=== PATIENT | female | born 2000 | race Caucasian/White ===

== ENCOUNTER 2018-01-06 18:48 | Emergency (ER) | payer BC ==
--- NOTE | 2018-01-06 19:12 | ED ---
Abdominal Pain HPI - General Chief Complaint: Abdominal Pain Stated Complaint: stomach pain Time Seen by Provider: 01/06/18 18:55 Source: patient, RN notes reviewed Mode of arrival: ambulatory Limitations: no limitations - History of Present Illness Initial Comments: This is a 17-year-old female who presents to the emergency department with chief complaint of abdominal pain. Patient states that she developed lower abdominal pain yesterday. She describes the pain as a stretching sensation. She states that she is currently 7 weeks . She states that on her first ultrasound she was approximately 4 weeks and baby's heart beat was seen on ultrasound. She states that her previous ultrasound performed on Monday showed gestational sac and yolk sac but that the fetus was not visualized. Denies any vaginal bleeding or discharge. She states that she has been experiencing nausea and vomiting in the mornings. She states she is sensitive to different smells. Denies fever or chills, shortness of breath or chest pain, dysuria or hematuria, constipation or diarrhea. Patient states her TITLE INSURANCE AGENT is Dr. Diggs. - Related Data Home Medications Medication Instructions Recorded Confirmed Exl-Ecyk-Iocvv Acid 1 cap PO DAILY 01/06/18 01/06/18 [-U Capsule (formulary)] Allergies Allergy/AdvReac Type Severity Reaction Status Date / Time No Known Allergies Allergy Verified 01/06/18 19:21 Review of Systems ROS Statement: Those systems with pertinent positive or pertinent negative responses have been documented in the HPI. ROS Other: All systems not noted in ROS Statement are negative. Past Medical History Past Medical History: No Reported History History of Any Multi-Drug Resistant Organisms: None Reported Past Surgical History: Tonsillectomy Past Psychological History: No Psychological Hx Reported Smoking Status: Former smoker Past Alcohol Use History: None Reported Past Drug Use History: None Reported General Exam - General Exam Comments Initial Comments: General: Awake and alert, well-developed; in no apparent distress. Pleasant young female. HEENT: Head atraumatic, normocephalic. Pupils are equal, round and reactive to light. Extraocular movements intact. Oropharynx moist without erythema or exudate. Neck: Supple. Normal ROM. Cardiovascular: Regular rate and rhythm. No murmurs, rubs or gallops. Chest symmetrical. Respiratory: Lungs clear to auscultation bilaterally. No wheezes, rales or rhonchi. Normal respiratory effort with no use of accessory muscles. Abdomen: Soft, non-tender, non-distended. No rigidity, rebound or guarding. Normal bowel sounds in all 4 quadrants. Musculoskeletal: Normal ROM, no tenderness bilateral upper and lower extremities. Ambulating normally. Skin: [place], warm and dry without rashes or lesions. Neurological: Alert and oriented x3. CN II-XII grossly intact. Speech is fluent and answers are appropriate. No focal neuro deficits. Psychiatric: Normal mood and affect. No overt signs of depression or anxiety noted. Limitations: no limitations Course Vital Signs 01/06/18 18:51 Temperature 97.4 F L Pulse Rate 89 Respiratory 20 Rate Blood Pressure 128/61 O2 Sat by Pulse 99 Oximetry Medical Decision Making - Medical Decision Making This is a 17-year-old female who presents to the emergency department with chief complaint of abdominal pain. Patient denied any vaginal bleeding or discharge. She states that abdominal pain is intermittent in the lower abdomen. She does have confirmed IUP on 2 previous ultrasounds. Patient's hCG serum was 124,921. CBC, CMP and UA were within normal limits. UA revealed no evidence of proteinuria, hematuria or infection. Ultrasound revealed an intrauterine gestational sac and yolk sac. Possibility of blighted ovum. Patient's vital signs are stable and she is in no acute distress. She will be discharged home. Recommended following up with her TITLE INSURANCE AGENT on Monday. Return parameters were discussed. Patient is in agreement and voices understanding. All questions were answered. - Lab Data Result diagrams: 01/06/18 19:30 01/06/18 19:30 Lab Results 01/06/18 01/06/18 01/06/18 Range/Units 19:30 19:30 19:30 WBC 10.0 (4.0-11.0) k/uL RBC 4.59 (3.80-5.40) m/uL Hgb 13.9 (11.4-16.0) gm/dL Hct 42.4 (34.0-46.0) % MCV 92.3 (80.0-100.0) fL MCH 30.3 (25.0-35.0) pg MCHC 32.9 (31.0-37.0) g/dL RDW 12.2 (11.5-15.5) % Plt Count 247 (150-450) k/uL Neutrophils % 68 % Lymphocytes % 24 % Monocytes % 6 % Eosinophils % 1 % Basophils % 0 % Neutrophils # 6.8 (1.3-7.7) k/uL Lymphocytes # 2.4 (1.0-4.8) k/uL Monocytes # 0.6 (0-1.0) k/uL Eosinophils # 0.1 (0-0.7) k/uL Basophils # 0.0 (0-0.2) k/uL Sodium 141 (137-145) mmol/L Potassium 4.0 (3.5-5.1) mmol/L Chloride 105 (98-107) mmol/L Carbon Dioxide 23 (22-30) mmol/L Anion Gap 13 mmol/L BUN 5 L (7-17) mg/dL Creatinine 0.40 L (0.52-1.04) mg/dL Est GFR (MDRD) Af Amer >60 (>60 ml/min/1.73 sqM) Est GFR (MDRD) Non-Af >60 (>60 ml/min/1.73 sqM) Glucose 85 (74-99) mg/dL Calcium 9.7 (8.4-10.2) mg/dL Total Bilirubin 0.3 (0.2-1.3) mg/dL AST 19 (14-36) U/L ALT 24 (9-52) U/L Alkaline Phosphatase 68 (38-126) U/L Total Protein 7.4 (6.3-8.2) g/dL Albumin 4.4 (3.5-5.0) g/dL Amylase 55 (30-110) U/L Lipase 84 (23-300) U/L HCG, Quant 722578.0 mIU/mL Urine Color Light Yellow Urine Appearance Clear (Clear) Urine pH 7.5 (5.0-8.0) Ur Specific [place] 1.005 (1.001-1.035) Urine Protein Negative (Negative) Urine Glucose (UA) Negative (Negative) Urine Ketones Negative (Negative) Urine Blood Negative (Negative) Urine Nitrite Negative (Negative) Urine Bilirubin Negative (Negative) Urine Urobilinogen <2.0 (<2.0) mg/dL Ur Leukocyte Esterase Negative (Negative) Blood Type Blood Type Recheck 01/06/18 Range/Units 20:35 WBC (4.0-11.0) k/uL RBC (3.80-5.40) m/uL Hgb (11.4-16.0) gm/dL Hct (34.0-46.0) % MCV (80.0-100.0) fL MCH (25.0-35.0) pg MCHC (31.0-37.0) g/dL RDW (11.5-15.5) % Plt Count (150-450) k/uL Neutrophils % % Lymphocytes % % Monocytes % % Eosinophils % % Basophils % % Neutrophils # (1.3-7.7) k/uL Lymphocytes # (1.0-4.8) k/uL Monocytes # (0-1.0) k/uL Eosinophils # (0-0.7) k/uL Basophils # (0-0.2) k/uL Sodium (137-145) mmol/L Potassium (3.5-5.1) mmol/L Chloride (98-107) mmol/L Carbon Dioxide (22-30) mmol/L Anion Gap mmol/L BUN (7-17) mg/dL Creatinine (0.52-1.04) mg/dL Est GFR (MDRD) Af Amer (>60 ml/min/1.73 sqM) Est GFR (MDRD) Non-Af (>60 ml/min/1.73 sqM) Glucose (74-99) mg/dL Calcium (8.4-10.2) mg/dL Total Bilirubin (0.2-1.3) mg/dL AST (14-36) U/L ALT (9-52) U/L Alkaline Phosphatase (38-126) U/L Total Protein (6.3-8.2) g/dL Albumin (3.5-5.0) g/dL Amylase (30-110) U/L Lipase (23-300) U/L HCG, Quant mIU/mL Urine Color Urine Appearance (Clear) Urine pH (5.0-8.0) Ur Specific [place] (1.001-1.035) Urine Protein (Negative) Urine Glucose (UA) (Negative) Urine Ketones (Negative) Urine Blood (Negative) Urine Nitrite (Negative) Urine Bilirubin (Negative) Urine Urobilinogen (<2.0) mg/dL Ur Leukocyte Esterase (Negative) Blood Type B Positive Blood Type Recheck No - Radiology Data Radiology results: report reviewed Transvaginal obstetrical ultrasound impression: There is an intrauterine gestational sac. This excess corresponds 8 weeks and 4 days. However there are internal echoes and no definite pole. There is a 4 mm yolk sac. There is discordant sac size and yolk sac and pole. The possibility of blighted ovum should be considered. No adnexal mass. Follow-up exam in 7-10 days would be helpful for further evaluation of clinically indicated. Disposition Clinical Impression: Intrauterine , Threatened Disposition: HOME SELF-CARE Condition: Good Instructions: Threatened Miscarriage (ED), (ED) Additional Instructions: Please follow-up with TITLE INSURANCE AGENT within 1-2 days. Please follow up with primary care provider within 1-2 days. Return to emergency department if symptoms should worsen or any concerns arise. Referrals: None,Stated [Primary Care Provider] - 1-2 days Time of Disposition: 23:53
[2018-01-06 19:40] LABS: Basophils % (A) 0 %; Eosinophils # (A) 0.1 k/uL (0-0.7); Eosinophils % (A) 1 %; HCT 42.4 % (34.0-46.0); HGB 13.9 gm/dL (11.4-16.0); Lymphocytes # (A) 2.4 k/uL (1.0-4.8); Lymphocytes % (A) 24 %; MCH 30.3 pg (25.0-35.0); MCHC 32.9 g/dL (31.0-37.0); MCV 92.3 fL (80.0-100.0); Mean Platelet Volume 7.2; Monocytes # (A) 0.6 k/uL (0-1.0); Monocytes % (A) 6 %; Neutrophils # (A) 6.8 k/uL (1.3-7.7); Neutrophils % (A) 68 %; Platelet Count 247 k/uL (150-450); RBC 4.59 m/uL (3.80-5.40); RDW 12.2 % (11.5-15.5)
[2018-01-06 19:41] LABS: Appearance,Urine Clear (Clear); Bilirubin,Urine Negative (Negative); Blood,Urine Negative (Negative); Color,Urine Light Yellow; Glucose,Urine (UA) Negative (Negative); Ketones,Urine Negative (Negative); Leukocyte Esterase,Urine Negative (Negative); Nitrite,Urine Negative (Negative); PH, Urine 7.5 (5.0-8.0); Protein,Urine Negative (Negative); Specific Gravity,Urine 1.005 (1.001-1.035); Urobilinogen,Urine <2.0 mg/dL (<2.0)
[2018-01-06 19:54] LABS: ALT 24 U/L (9-52); AST 19 U/L (14-36); Albumin 4.4 g/dL (3.5-5.0); Alkaline Phosphatase 68 U/L (38-126); Amylase 55 U/L (30-110); Anion Gap 13 mmol/L; Blood Urea Nitrogen 5 mg/dL (7-17); Calcium 9.7 mg/dL (8.4-10.2); Carbon Dioxide 23 mmol/L (22-30); Chloride 105 mmol/L (98-107); Glucose 85 mg/dL (74-99); Lipase 84 U/L (23-300); Sodium 141 mmol/L (137-145); Total Bilirubin 0.3 mg/dL (0.2-1.3); Total Protein 7.4 g/dL (6.3-8.2)
--- NOTE | 2018-01-06 23:47 | US ---
EXAMINATION TYPE: US OB <=14 wks transvag DATE OF EXAM: 01/06/2018 COMPARISON: NONE CLINICAL HISTORY: abdominal pain. Intermittent pelvic cramping x 2 days, 1 EXAM PERFORMED: Transvaginal (TV) and Transabdominal (TA): transvaginal exam performed to better geovani luate for pole. EXAM MEASUREMENTS: GESTATIONAL AGE / DATING Physician Established: Not established yet Dates by LMP: (11 weeks/6 days) EDC: 07/22/2018 Dates by First Scan: No previous Dates by Current Scan for: By gestational sac measurement ( 8 weeks/2 days) EDC: 08/16/2018 MATERNAL ANATOMY Uterus: 9.5 x 6.0 x 6.8cm, retroverted Right Ovary: 3.4 x 1.8 x 1.9cm Left Ovary: 2.7 x 1.6 x 2.5cm Post CDS / Adnexa: small amount of free fluid in posterior cul de sac Presence of free fluid: yes Presence of corpus luteal cyst: right ovary: 1.6 x 1.4 x 1.4cm isoechoic area with peripheral vascula rity, possible corpus luteum Presence of subchorionic bleed: no GESTATION / SURVEY No pole seen at this time MSD: 3.3cm (8 weeks/2 days) Appears to be internal echoes and septations within gestational sac Yolk Sac (normal less than 6mm): 4.3mm Date of LMP: 10/15/17 Beta HcG (if available): 124,921.0 No pole seen at this time. IMPRESSION: There is an intrauterine gestational sac. The sac size corresponds to 8 weeks and 4 days. However the re are internal echoes and no definite pole. There is a 4 mm yolk sac. There is discordant sac size and yolk sac and pole. The possibility of blighted ovum should be considered. No adnexal mass. Follow-up exam in 7-10 days would be helpful for further evaluation if clinically in dicated.
[2018-01-07 00:20] VITALS: BP 105/58; PULSE 86; RESP 18; TEMP 98.6
== END 2018-01-07 00:20 | disposition home or self-care (01) ==
LOC: EC 18:48
DX: O20.0 Threatened abortion (principal); Z3A.01 Less than 8 weeks gestation of pregnancy; Z87.891 Personal history of nicotine dependence; Z79.899 Other long term (current) drug therapy
CPT/HCPCS: 36415; 76801; 76817; 80053; 81003; 82150; 83690; 84702; 85025; 86900; 86901; 87086; 99284

== ENCOUNTER 2018-02-02 07:29 | Emergency (ER) | payer BC ==
[2018-02-02 08:08] LABS: Partial Thromboplastin Time 24.8 sec (22.0-30.0); Prothrombin Time 10.2 sec (9.0-12.0)
[2018-02-02 08:13] LABS: ALT 19 U/L (9-52); AST 18 U/L (14-36); Alkaline Phosphatase 63 U/L (38-126); Anion Gap 13 mmol/L; Blood Urea Nitrogen 6 mg/dL (7-17); Calcium 9.6 mg/dL (8.4-10.2); Carbon Dioxide 23 mmol/L (22-30); Chloride 107 mmol/L (98-107); Glucose 109 mg/dL (74-99); Potassium 4.3 mmol/L (3.5-5.1); Sodium 143 mmol/L (137-145); Total Bilirubin 0.5 mg/dL (0.2-1.3); Total Protein 6.7 g/dL (6.3-8.2)
[2018-02-02] MEDS ORDERED: ACETAMINOPHEN TAB 325 MG TAB PO STA (08:18)
[2018-02-02 08:19] LABS: Basophils # (A) 0.1 k/uL (0-0.2); Basophils % (A) 1 %; Eosinophils # (A) 0.3 k/uL (0-0.7); Eosinophils % (A) 3 %; HCT 38.7 % (34.0-46.0); HGB 13.8 gm/dL (11.4-16.0); Lymphocytes # (A) 1.9 k/uL (1.0-4.8); Lymphocytes % (A) 19 %; MCHC 35.8 g/dL (31.0-37.0); Mean Platelet Volume 7.1; Monocytes # (A) 0.4 k/uL (0-1.0); Monocytes % (A) 5 %; Neutrophils # (A) 7.2 k/uL (1.3-7.7); Neutrophils % (A) 72 %; Platelet Count 218 k/uL (150-450); RBC 4.47 m/uL (3.80-5.40); RDW 12.2 % (11.5-15.5); WBC 9.9 k/uL (4.0-11.0)
--- NOTE | 2018-02-02 08:21 | ED ---
Female Urogenital HPI - General Chief complaint: Vaginal Bleeding Stated complaint: Vaginal bleeding Time Seen by Provider: 02/02/18 08:04 Source: patient, EMS, RN notes reviewed Mode of arrival: EMS Limitations: no limitations - History of Present Illness Initial comments: This a 17-year-old female presents emergency Department chief complaint of vaginal bleeding. Patient states that one month ago she was diagnosed with a blighted ovum here in emergency department and by her DEPLOYMENT SPECIALIST Dr. Diggs. She was offered a D&C at that time or she could pass itHome. She states that she was going to call if she has not passed anything and schedule a D&C though she started bleeding this morning. She states that she started having very heavy vaginal bleeding passed a large clot or some sort of material at that time. Patient states now the bleeding is slowing down and has not much of anything. She does complain of some lower abdominal cramping. She has feeling lightheaded , dizziness, chest pain or shortness of breath. She did attempt to contact her OB 1 this morning no there was no answer from the legal receptionist. Patient is A1 Last Menstrual Period: 10/15/17 - Related Data Home Medications Medication Instructions Recorded Confirmed Ibuprofen [Motrin Ib] 400 mg PO ONCE PRN 02/02/18 02/02/18 Allergies Allergy/AdvReac Type Severity Reaction Status Date / Time No Known Allergies Allergy Verified 02/02/18 09:27 Review of Systems ROS Statement: Those systems with pertinent positive or pertinent negative responses have been documented in the HPI. ROS Other: All systems not noted in ROS Statement are negative. Past Medical History Past Medical History: No Reported History History of Any Multi-Drug Resistant Organisms: None Reported Past Surgical History: Tonsillectomy Past Psychological History: Anxiety, Depression Smoking Status: Former smoker Past Alcohol Use History: Rare Past Drug Use History: None Reported General Exam Limitations: no limitations General appearance: alert, in no apparent distress Head exam: Present: atraumatic, normocephalic, normal inspection Eye exam: Present: normal appearance, PERRL, EOMI. Absent: scleral icterus, conjunctival injection, periorbital swelling Respiratory exam: Present: normal lung sounds bilaterally. Absent: respiratory distress, wheezes, rales, rhonchi, stridor Cardiovascular Exam: Present: regular rate, normal rhythm, normal heart sounds. Absent: systolic murmur, diastolic murmur, rubs, gallop, clicks GI/Abdominal exam: Present: soft, normal bowel sounds. Absent: distended, tenderness, guarding, rebound, rigid Back exam: Absent: CVA tenderness (R), CVA tenderness (L) Course Vital Signs 02/02/18 07:30 Temperature 98.5 F Pulse Rate 91 Respiratory 18 Rate Blood Pressure 125/64 O2 Sat by Pulse 99 Oximetry - Reevaluation(s) Reevaluation #1: 02/02/18 08:21 Medical record was reviewed patient has be positive blood type. Patient will have lab work, ultrasound. Patient is having current miscarriage from blighted ovum Medical Decision Making - Medical Decision Making 17-year-old female presented emergency Department chief complaint of vaginal bleeding. Patient was diagnosed with blighted over one month ago. Patient's hCG has come down tremendously. Patients also consistent with miscarriage at this time. Patient's bleeding has slowed down. Patient states that symptoms are memorizing. Patient's blood type is B+, hemoglobin is stable. Patient will be discharged advised to follow with Dr. Diggs. - Lab Data Result diagrams: 02/02/18 07:30 02/02/18 07:30 Lab Results 02/02/18 02/02/18 02/02/18 Range/Units 07:30 07:30 07:30 WBC 9.9 (4.0-11.0) k/uL RBC 4.47 (3.80-5.40) m/uL Hgb 13.8 (11.4-16.0) gm/dL Hct 38.7 (34.0-46.0) % MCV 86.7 D (80.0-100.0) fL MCH 31.0 (25.0-35.0) pg MCHC 35.8 (31.0-37.0) g/dL RDW 12.2 (11.5-15.5) % Plt Count 218 (150-450) k/uL Neutrophils % 72 % Lymphocytes % 19 % Monocytes % 5 % Eosinophils % 3 % Basophils % 1 % Neutrophils # 7.2 (1.3-7.7) k/uL Lymphocytes # 1.9 (1.0-4.8) k/uL Monocytes # 0.4 (0-1.0) k/uL Eosinophils # 0.3 (0-0.7) k/uL Basophils # 0.1 (0-0.2) k/uL PT 10.2 (9.0-12.0) sec INR 1.0 (<1.2) APTT 24.8 (22.0-30.0) sec Sodium 143 (137-145) mmol/L Potassium 4.3 (3.5-5.1) mmol/L Chloride 107 (98-107) mmol/L Carbon Dioxide 23 (22-30) mmol/L Anion Gap 13 mmol/L BUN 6 L (7-17) mg/dL Creatinine 0.45 L (0.52-1.04) mg/dL Est GFR (CKD-EPI)AfAm >90 (>60 ml/min/1.73 sqM) Est GFR (CKD-EPI)NonAf >90 (>60 ml/min/1.73 sqM) Glucose 109 H (74-99) mg/dL Calcium 9.6 (8.4-10.2) mg/dL Total Bilirubin 0.5 (0.2-1.3) mg/dL AST 18 (14-36) U/L ALT 19 (9-52) U/L Alkaline Phosphatase 63 (38-126) U/L Total Protein 6.7 (6.3-8.2) g/dL Albumin 4.0 (3.5-5.0) g/dL HCG, Quant 2582.5 mIU/mL Urine Color Urine Appearance (Clear) Urine pH (5.0-8.0) Ur Specific [place] (1.001-1.035) Urine Protein (Negative) Urine Glucose (UA) (Negative) Urine Ketones (Negative) Urine Blood (Negative) Urine Nitrite (Negative) Urine Bilirubin (Negative) Urine Urobilinogen (<2.0) mg/dL Ur Leukocyte Esterase (Negative) Urine RBC (0-5) /hpf Urine WBC (0-5) /hpf Ur Squamous Epith Cells (0-4) /hpf Urine Mucus (None) /hpf 02/02/18 Range/Units 08:10 WBC (4.0-11.0) k/uL RBC (3.80-5.40) m/uL Hgb (11.4-16.0) gm/dL Hct (34.0-46.0) % MCV (80.0-100.0) fL MCH (25.0-35.0) pg MCHC (31.0-37.0) g/dL RDW (11.5-15.5) % Plt Count (150-450) k/uL Neutrophils % % Lymphocytes % % Monocytes % % Eosinophils % % Basophils % % Neutrophils # (1.3-7.7) k/uL Lymphocytes # (1.0-4.8) k/uL Monocytes # (0-1.0) k/uL Eosinophils # (0-0.7) k/uL Basophils # (0-0.2) k/uL PT (9.0-12.0) sec INR (<1.2) APTT (22.0-30.0) sec Sodium (137-145) mmol/L Potassium (3.5-5.1) mmol/L Chloride (98-107) mmol/L Carbon Dioxide (22-30) mmol/L Anion Gap mmol/L BUN (7-17) mg/dL Creatinine (0.52-1.04) mg/dL Est GFR (CKD-EPI)AfAm (>60 ml/min/1.73 sqM) Est GFR (CKD-EPI)NonAf (>60 ml/min/1.73 sqM) Glucose (74-99) mg/dL Calcium (8.4-10.2) mg/dL Total Bilirubin (0.2-1.3) mg/dL AST (14-36) U/L ALT (9-52) U/L Alkaline Phosphatase (38-126) U/L Total Protein (6.3-8.2) g/dL Albumin (3.5-5.0) g/dL HCG, Quant mIU/mL Urine Color Yellow Urine Appearance Clear (Clear) Urine pH 6.5 (5.0-8.0) Ur Specific [place] 1.016 (1.001-1.035) Urine Protein Negative (Negative) Urine Glucose (UA) Negative (Negative) Urine Ketones Negative (Negative) Urine Blood Small H (Negative) Urine Nitrite Negative (Negative) Urine Bilirubin Negative (Negative) Urine Urobilinogen <2.0 (<2.0) mg/dL Ur Leukocyte Esterase Negative (Negative) Urine RBC 3 (0-5) /hpf Urine WBC 1 (0-5) /hpf Ur Squamous Epith Cells <1 (0-4) /hpf Urine Mucus Rare H (None) /hpf Disposition Clinical Impression: Miscarriage Disposition: HOME SELF-CARE Condition: Stable Instructions: Miscarriage (ED) Additional Instructions: Please return to the Emergency Department if symptoms worsen or any other concerns. Referrals: Zeus Diggs DO [REFERRING] - 1-2 days Time of Disposition: 10:02
[2018-02-02 08:23] LABS: MCV 86.7 fL (80.0-100.0)
[2018-02-02 08:29] LABS: HCG,Quantitative Serum 2582.5 mIU/mL
[2018-02-02 08:37] LABS: Appearance,Urine Clear (Clear); Bilirubin,Urine Negative (Negative); Blood,Urine Small (Negative); Color,Urine Yellow; Glucose,Urine (UA) Negative (Negative); Ketones,Urine Negative (Negative); Leukocyte Esterase,Urine Negative (Negative); Mucus,Urine Rare /hpf; Nitrite,Urine Negative (Negative); PH, Urine 6.5 (5.0-8.0); Protein,Urine Negative (Negative); RBC,Urine 3 /hpf (0-5); Specific Gravity,Urine 1.016 (1.001-1.035); Squamous Epithelial Cell,Urine <1 /hpf (0-4); Urobilinogen,Urine <2.0 mg/dL (<2.0); WBC,Urine 1 /hpf (0-5)
--- NOTE | 2018-02-02 09:15 | US ---
EXAMINATION TYPE: US OB <= 14 wk fetus DATE OF EXAM: 02/02/2018 COMPARISON: US CLINICAL HISTORY: Pain. EXAM PERFORMED: Transabdominal (TA) EXAM MEASUREMENTS: GESTATIONAL AGE / DATING Patient states she has had 3 previous ultrasounds and a diagnosis of blighted ovum. She is in the ER today due to heavy bleeding Physician Established: Not established Dates by LMP: (14 weeks/6 days) EDC: 07/28/18 Dates by First Scan: (12 weeks/2 days) EDC: 08/16/18 Dates by Current Scan for: Unable to date by today's study MATERNAL ANATOMY Uterus: 12. 4 x 6.7 x 4.9cm Right Ovary: 2.9 x 1.6 x 1.7cm Left Ovary: 2.3 x 2.0 x 1.6cm Post CDS / Adnexa: wnl Presence of free fluid: no GESTATION / SURVEY CRL: no crown rump identified MSD: 2.6 cm (7 weeks/2 days) Yolk Sac (normal less than 6mm): no yolk sac seen IUP: only sac seen Date of LMP: 10/21/18 Beta HcG (if available): 2582 IMPRESSION: Findings this may reflect blighted ovum and/or spontaneous in progress. No pole is det ected at this time.
[2018-02-02 10:13] VITALS: BP 120/70; PULSE 74; RESP 16; TEMP 97.9
== END 2018-02-02 10:12 | disposition home or self-care (01) ==
LOC: EC 07:29
DX: O03.9 Complete or unspecified spontaneous abortion without complication (principal); O02.0 Blighted ovum and nonhydatidiform mole; O99.89 Other specified diseases and conditions complicating pregnancy, childbirth and the puerperium; R42 Dizziness and giddiness; R07.9 Chest pain, unspecified; Z87.891 Personal history of nicotine dependence
CPT/HCPCS: 36415; 76801; 80053; 81001; 84702; 85025; 85610; 85730; 99285

== ENCOUNTER 2018-04-03 12:55 | Emergency (ER) | payer BC ==
[2018-04-03 13:56] LABS: Basophils # (A) 0.1 k/uL (0-0.2); Basophils % (A) 1 %; Eosinophils # (A) 0.1 k/uL (0-0.7); Eosinophils % (A) 2 %; HCT 43.6 % (34.0-46.0); Lymphocytes % (A) 39 %; MCH 30.2 pg (25.0-35.0); MCHC 34.3 g/dL (31.0-37.0); MCV 87.9 fL (80.0-100.0); Mean Platelet Volume 7.5; Monocytes # (A) 0.2 k/uL (0-1.0); Monocytes % (A) 4 %; Neutrophils # (A) 2.7 k/uL (1.3-7.7); Neutrophils % (A) 52 %; Platelet Count 240 k/uL (150-450); RBC 4.96 m/uL (3.80-5.40); RDW 12.9 % (11.5-15.5); WBC 5.2 k/uL (4.0-11.0)
[2018-04-03 14:03] LABS: Amorphous Sediment,Urine Moderate /hpf; Appearance,Urine Turbid (Clear); Bilirubin,Urine Negative (Negative); Blood,Urine Negative (Negative); Color,Urine Yellow; Glucose,Urine (UA) Negative (Negative); Ketones,Urine Negative (Negative); Leukocyte Esterase,Urine Negative (Negative); Mucus,Urine Occasional /hpf; Nitrite,Urine Negative (Negative); Protein,Urine Negative (Negative); Specific Gravity,Urine 1.022 (1.001-1.035); Urobilinogen,Urine <2.0 mg/dL (<2.0)
[2018-04-03 14:12] LABS: ALT 23 U/L (9-52); AST 22 U/L (14-36); Albumin 4.7 g/dL (3.5-5.0); Alkaline Phosphatase 71 U/L (38-126); Anion Gap 14 mmol/L; Blood Urea Nitrogen 14 mg/dL (7-17); Calcium 9.8 mg/dL (8.4-10.2); Carbon Dioxide 27 mmol/L (22-30); Chloride 105 mmol/L (98-107); Glucose 90 mg/dL (74-99); Potassium 4.4 mmol/L (3.5-5.1); Sodium 146 mmol/L (137-145); Total Bilirubin 0.6 mg/dL (0.2-1.3); Total Protein 7.6 g/dL (6.3-8.2)
--- NOTE | 2018-04-03 14:45 | ED ---
General Adult HPI - General Chief complaint: Vaginal Bleeding Stated complaint: /bleeding Time Seen by Provider: 04/03/18 13:51 Source: patient, RN notes reviewed Mode of arrival: ambulatory Limitations: no limitations - History of Present Illness Initial comments: This a 17-year-old female presents emergency Department chief complaint of vaginal bleeding in early . Patient states she had a positive test on the 03/24/2018. Patient states that she is A1. Patient had a miscarriage and stopped bleeding approximately 2 months ago. Patient states her prior FINNISH RUBBER was Dr. Diggs. She has no current abdominal pain or cramping. Denies any headache, dizziness. Patient is B+ blood type. Patient has no nausea, vomiting, diarrhea constipation. - Related Data Home Medications Medication Instructions Recorded Confirmed Dbt-Kjvv-Jkmmw Acid 1 cap PO DAILY 04/03/18 04/03/18 [-U Capsule (formulary)] Allergies Allergy/AdvReac Type Severity Reaction Status Date / Time No Known Allergies Allergy Verified 04/03/18 14:03 Review of Systems ROS Statement: Those systems with pertinent positive or pertinent negative responses have been documented in the HPI. ROS Other: All systems not noted in ROS Statement are negative. Past Medical History Past Medical History: No Reported History History of Any Multi-Drug Resistant Organisms: None Reported Past Surgical History: Tonsillectomy Past Psychological History: Anxiety, Depression Smoking Status: Former smoker Past Alcohol Use History: Rare Past Drug Use History: None Reported General Exam Limitations: no limitations General appearance: alert, in no apparent distress Head exam: Present: atraumatic, normocephalic, normal inspection Respiratory exam: Present: normal lung sounds bilaterally. Absent: respiratory distress, wheezes, rales, rhonchi, stridor Cardiovascular Exam: Present: regular rate, normal rhythm, normal heart sounds. Absent: systolic murmur, diastolic murmur, rubs, gallop, clicks GI/Abdominal exam: Present: soft, normal bowel sounds. Absent: distended, tenderness, guarding, rebound, rigid Back exam: Absent: CVA tenderness (R), CVA tenderness (L) Skin exam: Present: warm, dry, intact, normal color. Absent: rash Course Vital Signs 04/03/18 13:07 Temperature 99.3 F Pulse Rate 104 H Respiratory 18 Rate Blood Pressure 105/56 O2 Sat by Pulse 99 Oximetry Medical Decision Making - Medical Decision Making 17-year-old female presented emergency department for vaginal bleeding early . Patient states she took a positive at home. Current hCG is negative for sperm and she did have an ultrasound prior to having results which show no acute intrauterine problems. Patient we discharged at this time return parameters were discussed - Lab Data Result diagrams: 04/03/18 13:41 04/03/18 13:41 Lab Results 04/03/18 04/03/18 04/03/18 Range/Units 13:41 13:41 13:41 WBC 5.2 (4.0-11.0) k/uL RBC 4.96 (3.80-5.40) m/uL Hgb 15.0 (11.4-16.0) gm/dL Hct 43.6 (34.0-46.0) % MCV 87.9 (80.0-100.0) fL MCH 30.2 (25.0-35.0) pg MCHC 34.3 (31.0-37.0) g/dL RDW 12.9 (11.5-15.5) % Plt Count 240 (150-450) k/uL Neutrophils % 52 % Lymphocytes % 39 % Monocytes % 4 % Eosinophils % 2 % Basophils % 1 % Neutrophils # 2.7 (1.3-7.7) k/uL Lymphocytes # 2.0 (1.0-4.8) k/uL Monocytes # 0.2 (0-1.0) k/uL Eosinophils # 0.1 (0-0.7) k/uL Basophils # 0.1 (0-0.2) k/uL Sodium 146 H (137-145) mmol/L Potassium 4.4 (3.5-5.1) mmol/L Chloride 105 (98-107) mmol/L Carbon Dioxide 27 (22-30) mmol/L Anion Gap 14 mmol/L BUN 14 (7-17) mg/dL Creatinine 0.62 (0.52-1.04) mg/dL Est GFR (CKD-EPI)AfAm >90 (>60 ml/min/1.73 sqM) Est GFR (CKD-EPI)NonAf >90 (>60 ml/min/1.73 sqM) Glucose 90 (74-99) mg/dL Calcium 9.8 (8.4-10.2) mg/dL Total Bilirubin 0.6 (0.2-1.3) mg/dL AST 22 (14-36) U/L ALT 23 (9-52) U/L Alkaline Phosphatase 71 (38-126) U/L Total Protein 7.6 (6.3-8.2) g/dL Albumin 4.7 (3.5-5.0) g/dL Urine Color Urine Appearance (Clear) Urine pH (5.0-8.0) Ur Specific [place] (1.001-1.035) Urine Protein (Negative) Urine Glucose (UA) (Negative) Urine Ketones (Negative) Urine Blood (Negative) Urine Nitrite (Negative) Urine Bilirubin (Negative) Urine Urobilinogen (<2.0) mg/dL Ur Leukocyte Esterase (Negative) Amorphous Sediment (None) /hpf Urine Mucus (None) /hpf Urine HCG, Qual Not Detected (Not Detectd) 04/03/18 Range/Units 13:41 WBC (4.0-11.0) k/uL RBC (3.80-5.40) m/uL Hgb (11.4-16.0) gm/dL Hct (34.0-46.0) % MCV (80.0-100.0) fL MCH (25.0-35.0) pg MCHC (31.0-37.0) g/dL RDW (11.5-15.5) % Plt Count (150-450) k/uL Neutrophils % % Lymphocytes % % Monocytes % % Eosinophils % % Basophils % % Neutrophils # (1.3-7.7) k/uL Lymphocytes # (1.0-4.8) k/uL Monocytes # (0-1.0) k/uL Eosinophils # (0-0.7) k/uL Basophils # (0-0.2) k/uL Sodium (137-145) mmol/L Potassium (3.5-5.1) mmol/L Chloride (98-107) mmol/L Carbon Dioxide (22-30) mmol/L Anion Gap mmol/L BUN (7-17) mg/dL Creatinine (0.52-1.04) mg/dL Est GFR (CKD-EPI)AfAm (>60 ml/min/1.73 sqM) Est GFR (CKD-EPI)NonAf (>60 ml/min/1.73 sqM) Glucose (74-99) mg/dL Calcium (8.4-10.2) mg/dL Total Bilirubin (0.2-1.3) mg/dL AST (14-36) U/L ALT (9-52) U/L Alkaline Phosphatase (38-126) U/L Total Protein (6.3-8.2) g/dL Albumin (3.5-5.0) g/dL Urine Color Yellow Urine Appearance Turbid H (Clear) Urine pH 7.0 (5.0-8.0) Ur Specific [place] 1.022 (1.001-1.035) Urine Protein Negative (Negative) Urine Glucose (UA) Negative (Negative) Urine Ketones Negative (Negative) Urine Blood Negative (Negative) Urine Nitrite Negative (Negative) Urine Bilirubin Negative (Negative) Urine Urobilinogen <2.0 (<2.0) mg/dL Ur Leukocyte Esterase Negative (Negative) Amorphous Sediment Moderate H (None) /hpf Urine Mucus Occasional H (None) /hpf Urine HCG, Qual (Not Detectd) Disposition Clinical Impression: Vaginal bleeding, Menstruation Disposition: HOME SELF-CARE Condition: Stable Instructions: Menstruation (ED) Additional Instructions: Please return to the Emergency Department if symptoms worsen or any other concerns. Is patient prescribed a controlled substance at d/c from ED?: No Referrals: None,Stated [Primary Care Provider] - 1-2 days Time of Disposition: 15:05
--- NOTE | 2018-04-03 15:02 | US ---
EXAMINATION TYPE: Transabdominal DATE OF EXAM: 02/13/18 COMPARISON: 02/02/2018 CLINICAL HISTORY: 17-year-old female Pain, bleeding. Patient had blighted ovum and return to negative hCG and 03/22/2018. Spotting shortly thereafter. Pos itive HOME test 5-15, in ER today with bleeding. EXAM PERFORMED: Transvaginal (TV) and Transabdominal (TA) Findings: EXAM MEASUREMENTS: GESTATIONAL AGE / DATING Physician Established: Not yet established ( Dates by LMP: See above history Dates by First Scan: No previous this is first scan Dates by Current Scan for: Unable to date by today's study MATERNAL ANATOMY Uterus: 5.1 x 4.1 x 6.7cm Right Ovary: 3.7 x 2.1 x 1.8cm Left Ovary: 3.2 x 1.6 x 1.7cm Post CDS / Adnexa: wnl Presence of free fluid: no Presence of corpus luteal cyst: no Presence of subchorionic bleed: no GESTATION / SURVEY IUP: No IUP seen at this time Date of LMP: see above history Beta HcG (if available): NOT DETECTED, these results came in after the ultrasound was alre gillian done IMPRESSION: 1. No intrauterine seen. In the setting of a positive test, differential consider ations include too early to visualize , nonvisualized ectopic, and failed . Appropr iate follow-up recommended. 2. Follicular change in both ovaries.
[2018-04-03 15:33] VITALS: BP 94/60; PULSE 75; RESP 16; TEMP 98
== END 2018-04-03 15:55 | disposition home or self-care (01) ==
LOC: EC 12:55
DX: N93.9 Abnormal uterine and vaginal bleeding, unspecified (principal); N92.6 Irregular menstruation, unspecified; Z87.891 Personal history of nicotine dependence
CPT/HCPCS: 36415; 76801; 76817; 80053; 81001; 81025; 85025; 99284

== ENCOUNTER 2018-09-14 21:48 | Emergency (ER) | payer BC ==
--- NOTE | 2018-09-14 22:18 | ED ---
Female Urogenital HPI - General Chief complaint: Vaginal Bleeding Stated complaint: vaginal bleeding, 5 weeks Time Seen by Provider: 09/14/18 22:07 Source: patient Mode of arrival: ambulatory Limitations: no limitations - History of Present Illness Initial comments: This patient is a 17-year-old woman who presents to be evaluated for vaginal bleeding in early . The patient relates that she took a test about 2-3 weeks ago that showed that she was . She does believe however that her last menstrual period was August 13. The patient states that this afternoon she noticed some spotting when she wiped. She has not had any abdominal pain or cramping. Patient states she did have one previous miscarriage early in . She does not know her blood type but does not believe that she had have a Rhogam with the last miscarriage MD Complaint: vaginal bleeding -: hour(s) Severity scale (1-10): 0 Quality: other (No pain) Improves with: none Worsens with: none Last Menstrual Period: 08/13/18 Patient : Yes - Related Data Home Medications Medication Instructions Recorded Confirmed Avp-Snwf-Fjvzx Acid 1 cap PO DAILY 04/03/18 09/14/18 [-U Capsule (formulary)] Allergies Allergy/AdvReac Type Severity Reaction Status Date / Time No Known Allergies Allergy Verified 09/14/18 22:30 Review of Systems ROS Statement: Those systems with pertinent positive or pertinent negative responses have been documented in the HPI. ROS Other: All systems not noted in ROS Statement are negative. Constitutional: Denies: fever, chills Respiratory: Denies: cough, dyspnea Cardiovascular: Denies: chest pain, palpitations Gastrointestinal: Denies: abdominal pain, vomiting Genitourinary: Reports: discharge (Spotting). Denies: urgency, dysuria, frequency, hematuria Musculoskeletal: Denies: back pain Neurological: Denies: weakness Past Medical History Past Medical History: No Reported History History of Any Multi-Drug Resistant Organisms: None Reported Past Surgical History: Tonsillectomy Past Psychological History: Anxiety, Depression Smoking Status: Former smoker Past Alcohol Use History: Rare Past Drug Use History: None Reported General Exam Limitations: no limitations General appearance: alert, in no apparent distress Head exam: Present: atraumatic, normocephalic Eye exam: Present: normal appearance. Absent: scleral icterus, conjunctival injection ENT exam: Present: normal oropharynx Respiratory exam: Present: normal lung sounds bilaterally. Absent: respiratory distress, wheezes, rales, rhonchi, stridor Cardiovascular Exam: Present: regular rate, normal rhythm, normal heart sounds. Absent: systolic murmur, diastolic murmur, rubs, gallop GI/Abdominal exam: Present: soft. Absent: distended, tenderness, guarding, rebound, rigid, mass Extremities exam: Present: normal inspection, normal capillary refill. Absent: pedal edema Back exam: Absent: CVA tenderness (R), CVA tenderness (L) Neurological exam: Present: alert Skin exam: Present: warm, dry, intact, normal color. Absent: rash Course Vital Signs 09/14/18 09/15/18 21:50 00:30 Temperature 98.3 F 98.2 F Pulse Rate 85 95 Respiratory 18 17 Rate Blood Pressure 104/66 107/83 O2 Sat by Pulse 100 97 Oximetry Medical Decision Making - Medical Decision Making Patient is a 17-year-old woman in early with some spotting that appears to be resolving here in emergency department. Her beta hCG is below the detectable threshold, and patient will follow up for serial beta hCG and ultrasound as well. We did discuss return parameters and appropriate follow-up and further care. - Lab Data Lab Results 09/14/18 09/15/18 09/15/18 Range/Units 22:28 00:12 00:12 HCG, Quant 9519.1 mIU/mL Chlamydia Source Vagina Chlamydia DNA (PCR) Negative (Neg,Equiv) N. gonorrhoeae Source Vagina N.gonorrhoeae DNA Probe Negative (Neg,Equiv) Trichomonas Ag (Rapid) (Negative) 09/15/18 Range/Units 00:12 HCG, Quant mIU/mL Chlamydia Source Chlamydia DNA (PCR) (Neg,Equiv) N. gonorrhoeae Source N.gonorrhoeae DNA Probe (Neg,Equiv) Trichomonas Ag (Rapid) Negative (Negative) Disposition Clinical Impression: Threatened Disposition: HOME SELF-CARE Condition: Good Instructions: Threatened Miscarriage (ED) Is patient prescribed a controlled substance at d/c from ED?: No Referrals: Roseanna Junior MD [STAFF PHYSICIAN] - 1-2 days
--- NOTE | 2018-09-14 23:56 | US ---
EXAMINATION TYPE: Transabdominal DATE OF EXAM: 02/13/18 COMPARISON: NONE CLINICAL HISTORY: bleeding. EXAM PERFORMED: Transvaginal (TV) and Transabdominal (TA) EXAM MEASUREMENTS: GESTATIONAL AGE / DATING Physician Established: not established Dates by LMP: (4 weeks/4 days) EDC: 05/20/2019 Dates by First Scan: this is first scan Dates by Current Scan for: (5 weeks/0 days) EDC: 05/17/2019 MATERNAL ANATOMY Uterus: 7.8 x 4.4 x 5.7 cm Right Ovary: 3.0 x 1.6 x 2.5 cm Left Ovary: 3.2 x 1.4 x 2.7 cm Post CDS / Adnexa: wnl Presence of free fluid: small amount at uterine fundus Presence of corpus luteal cyst: no Presence of subchorionic bleed: no GESTATION / SURVEY MSD: 1.0 (5 weeks/0 days) Yolk Sac (normal less than 6mm): 0.3 mm Date of LMP: 08/13/2018 Gestational sac with yolk sac. No pole. Mean Sac Diameter corresponds with 5 week gestational age IMPRESSION: Early intrauterine . Follow-up exam recommended in 14 days to confirm a living fetus.
[2018-09-15 00:32] VITALS: BP 107/83; PULSE 95; RESP 17; TEMP 98.2
[2018-09-16 12:08] LABS: C. trachomatis,PCR Negative (Neg,Equiv); Chlamydia trachomatis Source Vagina; N. gonorrhoeae,PCR Negative (Neg,Equiv); Neisseria Source Vagina
== END 2018-09-15 00:32 | disposition home or self-care (01) ==
LOC: EC 21:48
DX: O20.0 Threatened abortion (principal); Z87.891 Personal history of nicotine dependence; Z3A.01 Less than 8 weeks gestation of pregnancy
CPT/HCPCS: 36415; 76801; 76817; 84702; 87070; 87205; 87491; 87591; 87808; 99284

== ENCOUNTER → 2018-09-17 | Outpatient (CLI) | payer BC | LOC: LABWHC1 14:39 | PROVIDERS: ATTEND Clinical Nurse Specialist Women's Health | DX: O20.0 Threatened abortion (principal) | CPT/HCPCS: 36415; 84702 ==

== ENCOUNTER → 2018-09-19 | Outpatient (CLI) | payer BC | END | disposition home or self-care (01) | LOC: LABWHC1 12:41 | PROVIDERS: ATTEND Clinical Nurse Specialist Women's Health | DX: O20.0 Threatened abortion (principal); Z3A.00 Weeks of gestation of pregnancy not specified | CPT/HCPCS: 36415; 84702 ==

== ENCOUNTER 2019-04-24 20:45 | Outpatient (CLI) | payer BC ==
[2019-04-24 21:43] VITALS: BP 145/68; PULSE 109; RESP 18; TEMP 97.4
--- NOTE | 2019-06-18 15:24 | P.MSEPDOC ---
Presenting Problems - Arrival Data Date of Arrival on Unit: 04/24/19 Time of Arrival on Unit: 21:35 Mode of Transport: Ambulatory - Complaint OB-Reason for Admission/Chief Complaint: Decreased Movement Comment: Pt arrives today due to decreased movement. Medical History - Information : 2 Para: 0 Term: 0 : 0 Abortions: Spontaneous or Elective: 0 Number of Living Children: 0 - Gestational Age Gestational Age by RUSS (wks/days): 37 Weeks and 3 Days Review of Systems - Review of Systems Constitutional: No problems Breast: No problems ENT: No problems Cardiovascular: No problems Respiratory: No problems Gastrointestinal: No problems Genitourinary: No problems Musculoskeletal: No problems Neurological: No problems Skin: No problems Vital Signs - Temperature Temperature: 97.4 F Temperature Source: Temporal Artery Scan - Pulse Right Pulse Oximetery Pulse Rate: 109 Pulse Assessment Method: Pulse Oximetry - Respirations Respiratory Rate: 18 O2 Sat by Pulse Oximetry: 98 - Blood Pressure Right Arm Blood Pressure: 145/68 Blood Pressure Mean: 93 Blood Pressure Source: Automatic Cuff - Comment Vital Signs Comment: repeat BP: 128/63 and 122/66. repeat HR: 98 Medical Screen Scoring (Pre) - Cervical Exam Membranes: Intact - Uterine Contractions Frequency: N/A Duration: N/A Intensity: N/A - Maternal Vital Signs Maternal Temperature: N/A Maternal Blood Pressure: N/A Signs of Preeclampsia: N/A Maternal Respirations: N/A - Maternal Trauma Maternal Trauma: N/A - Assessment - Baby A Baseline FHR: 145 Heart Rate - NICHD Category: Category I (Normal) = 0 NST: Reactive Position: N/A Station: N/A - Total Score - Baby A Total Score - Baby A: 0 - Total Score - Baby B Total Score - Baby B: 0 - Total Score - Baby C Total Score - Baby C: 0 - Level of Risk - Baby A Level of Risk - Baby A: Low (0-5) - Level of Risk - Baby B Level of Risk - Baby B: Low (0-5) - Level of Risk - Baby C Level of Risk - Baby C: Low (0-5) Physician Notification (Pre) - Physician Notified Physician Notified Date: 04/24/19 Physician Notified Time: 21:31 Physician/Practitioner Notifed:: Sandi Spoke With: Sandi New Order Received: Yes (Order to discharge patient - states will see her at her am appt) Disposition - Disposition OB Disposition: Physician follow up in office, Discharge to home Discharge Date: 04/24/19 Discharge Time: 21:35 I agree with the RN Medical Screening Exam: Yes Risk & Benefit of care provided described in d/c instruction: Yes Diagnosis: DECREASED MOVEMENTS, THIRD TRIMESTER, FETUS 1
== END 2019-04-24 21:35 | disposition home or self-care (01) ==
LOC: FBPOP 20:45
PROVIDERS: ATTEND Obstetrics & Gynecology
DX: O36.8130 Decreased fetal movements, third trimester, not applicable or unspecified (principal); Z3A.37 37 weeks gestation of pregnancy
CPT/HCPCS: 59025; 99213

== ENCOUNTER 2019-05-10 15:01 | Outpatient (CLI) | payer BC ==
[2019-05-10 15:44] VITALS: BP 120/62; PULSE 118; RESP 16
[2019-05-10 15:46] VITALS: TEMP 99
--- NOTE | 2019-06-18 15:27 | P.MSEPDOC ---
Presenting Problems - Arrival Data Date of Arrival on Unit: 05/10/19 Time of Arrival on Unit: 15:01 Mode of Transport: Ambulatory - Complaint OB-Reason for Admission/Chief Complaint: Decreased Movement Medical History - Information : 2 Para: 0 Term: 0 : 0 Abortions: Spontaneous or Elective: 1 Number of Living Children: 0 - Gestational Age Gestational Age by RUSS (wks/days): 39 Weeks and 5 Days Review of Systems - Review of Systems Constitutional: No problems Breast: No problems ENT: No problems Cardiovascular: No problems Respiratory: No problems Gastrointestinal: No problems Genitourinary: No problems Musculoskeletal: No problems Neurological: No problems Skin: No problems Vital Signs - Temperature Temperature: 99 F Temperature Source: Oral - Pulse Right Brachial Pulse Rate: 118 Pulse Assessment Method: Automatic Cuff - Respirations Respiratory Rate: 16 Oxygen Delivery Method: Room Air O2 Sat by Pulse Oximetry: 97 - Blood Pressure Right Arm Blood Pressure: 120/62 Blood Pressure Mean: 81 Blood Pressure Source: Automatic Cuff Medical Screen Scoring (Pre) - Cervical Exam Dilation: 1-3 cm = 1 Membranes: Intact - Uterine Contractions Frequency: > 5 minutes apart = 1 Duration: N/A Intensity: N/A - Maternal Vital Signs Maternal Temperature: N/A Maternal Blood Pressure: Systolic >139 = 2 Signs of Preeclampsia: N/A Maternal Respirations: N/A - Maternal Trauma Maternal Trauma: N/A - Assessment - Baby A Baseline FHR: 145 Heart Rate - NICHD Category: Category I (Normal) = 0 NST: Reactive Position: N/A Station: N/A - Total Score - Baby A Total Score - Baby A: 4 - Total Score - Baby B Total Score - Baby B: 4 - Total Score - Baby C Total Score - Baby C: 4 - Level of Risk - Baby A Level of Risk - Baby A: Low (0-5) - Level of Risk - Baby B Level of Risk - Baby B: Low (0-5) - Level of Risk - Baby C Level of Risk - Baby C: Low (0-5) Physician Notification (Pre) - Physician Notified Physician Notified Date: 05/10/19 Physician Notified Time: 15:25 Physician/Practitioner Notifed:: Sandi Spoke With: Sandi New Order Received: Yes - Notification Comment Comment: pt may be discharged home Medical Screen Scoring (Post) - Cervical Exam Dilation: 1-3 cm = 1 Membranes: Intact - Uterine Contractions Frequency: > 5 minutes apart = 1 Duration: N/A Intensity: N/A - Maternal Vital Signs Maternal Temperature: N/A Maternal Blood Pressure: N/A Signs of Preeclampsia: N/A Maternal Respirations: N/A - Pain Assessment Pain Scale Used: Numeric (1 - 10) Pain Intensity: 0 - Maternal Trauma Maternal Trauma: N/A - Assessment - Baby A Heart Rate: 145 Heart Rate - NICHD Category: Category I (Normal) = 0 NST: Reactive Position: N/A Station: N/A - Total Score Total Score - Baby A: 2 Total Score - Baby B: 2 Total Score - Baby C: 2 - Post Treatment Level of Risk Post Treatment Level of Risk - Baby A: Low (0-5) Post Treatment Level of Risk - Baby B: Low (0-5) Post Treatment Level of Risk - Baby C: Low (0-5) Physician Notification (Post) - Physician Notified Physician Notified Date: 05/10/19 Physician Notified Time: 15:25 Physician/Practitioner Notified:: Sandi here in department Spoke With: Sandi New Order Received: Yes - Notification Comment Comment: pt may be discharged home Disposition - Disposition OB Disposition: Physician follow up in office, Discharge to home Discharge Date: 05/10/19 Discharge Time: 15:46 I agree with the RN Medical Screening Exam: Yes Risk & Benefit of care provided described in d/c instruction: Yes Diagnosis: DECREASED MOVEMENTS, THIRD TRIMESTER, FETUS 1
== END 2019-05-10 15:48 | disposition home or self-care (01) ==
LOC: FBPOP 15:01
PROVIDERS: ATTEND Obstetrics & Gynecology Obstetrics
DX: O36.8130 Decreased fetal movements, third trimester, not applicable or unspecified (principal); Z3A.39 39 weeks gestation of pregnancy
CPT/HCPCS: 59025; 99213

== ENCOUNTER 2019-05-12 14:34 | Inpatient (IN) | payer BC ==
[2019-05-15] MEDS ORDERED: TERBUTALINE 1 MG/ML VIAL SQ PRN (06:26)
[2019-05-15] MEDS ORDERED: LIDOCAINE 0.5% (PF) 5 MG/ML (50 ML SDV) SQ PRN (06:26)
[2019-05-15] MEDS ORDERED: METHYLERGONOVINE 0.2 MG/ML 1 ML AMP IM PRN (06:26)
[2019-05-15] MEDS ORDERED: CARBOPROST TROMETHAMINE 250 MCG/ML 1 ML AMP IM PRN (06:26)
[2019-05-15] MEDS ORDERED: OXYTOCIN 10 UNIT/ML 1 ML VIAL IM PRN (06:26)
[2019-05-15] MEDS ORDERED: OXYTOCIN 30 UNITS/500 ML NS 30 UNIT in SALINE 1 500ML.BAG IV SCH (06:30)
[2019-05-15 06:32] LABS: Basophils # (A) 0.1 k/uL (0-0.2); Basophils % (A) 1 %; Eosinophils # (A) 0.1 k/uL (0-0.7); Eosinophils % (A) 1 %; HCT 37.4 % (34.0-46.0); HGB 12.4 gm/dL (11.4-16.0); Lymphocytes # (A) 2.7 k/uL (1.0-4.8); Lymphocytes % (A) 24 %; MCH 29.2 pg (25.0-35.0); MCHC 33.1 g/dL (31.0-37.0); MCV 88.2 fL (80.0-100.0); Mean Platelet Volume 8.1; Monocytes # (A) 0.6 k/uL (0-1.0); Monocytes % (A) 6 %; Neutrophils # (A) 7.2 k/uL (1.3-7.7); Neutrophils % (A) 66 %; Platelet Count 189 k/uL (150-450); RBC 4.23 m/uL (3.80-5.40); RDW 15.2 % (11.5-15.5); WBC 10.9 k/uL (4.0-11.0)
[2019-05-15 06:44] VITALS: BMI 33.1
[2019-05-15] MEDS: LACTATED RINGERS 1,000 ML IV SCH ×4 (06:45→18:24)
--- NOTE | 2019-05-15 07:20 | P.HPOB ---
History of Present Illness H&P Date: 05/15/19 This is a 18-year-old white female 2 para 0010 EDC 05/12/2019 at 40-3/7 weeks' gestation. Patient presents today for induction for postdates with favorable cervix. Fetus is been active throughout the . She is having mild irregular spontaneous contractions. She denies fluid leakage or vaginal bleeding. Obstetric history is significant for blood type B positive, rubella status immune. Group B strep cultures negative. VDRL testing, urine culture, hepatitis B surface antigen, HIV testing, gonorrhea and chlamydia cultures all negative. Past medical history is essentially negative. Past surgical history tonsillectomy as a child. Current medications vitamins daily. ALLERGIES none known. Family history significant for hypertension, diabetes, kidney failure. Social history patient is single, she is a former tobacco smoker, she denies alcohol or drug use. On exam this is a pleasant young female, 5 foot 3 inches, 187 pounds, blood pressure 117/65, vital signs are stable and she is afebrile. The general physical exam is within normal limits. Chest is clear. Cervix is 3 cm dilated, 70% effaced, -2 station, vertex presentation. Artificial amniorrhexis reveals clear fluid. heart tones are consistent with reactive NST. Impression: 40-3/7 weeks intrauterine , here for induction of labor, all signs reassuring, clear fluid. Plan: Oxytocin per hospital protocol. Continue close maternal and surveillance. Analgesic options have been reviewed with the patient. Anticipate normal spontaneous vaginal delivery. Review of Systems Constitutional: Reports as per HPI Past Medical History Past Medical History: No Reported History History of Any Multi-Drug Resistant Organisms: None Reported Past Surgical History: Tonsillectomy Past Psychological History: Anxiety, Depression Smoking Status: Former smoker Past Alcohol Use History: None Reported Past Drug Use History: None Reported - Past Family History Father Family Medical History: No Reported History Medications and Allergies Home Medications Medication Instructions Recorded Confirmed Type Osn-Teij-Hlhbv Acid 1 cap PO DAILY 04/03/18 05/15/19 History [-U Capsule (formulary)] Allergies Allergy/AdvReac Type Severity Reaction Status Date / Time No Known Allergies Allergy Verified 05/15/19 06:24 Exam Vital Signs Temp Pulse Resp BP Pulse Ox 05/15/19 06:35 98.1 F 101 H 18 117/65 97 Intake and Output 05/14/19 05/15/19 05/15/19 22:59 06:59 14:59 Other: Weight 84.822 kg See dictation under HPI please Results Result Diagrams: 05/15/19 06:05 Assessment and Plan Assessment: 40-3/7 weeks intrauterine , here for induction of labor, favorable cervix, all signs reassuring. Plan: Oxytocin per hospital protocol. Analgesic options of been reviewed with the patient. Continue close maternal and surveillance. Anticipate normal spontaneous vaginal delivery. Time with Patient: Less than 30
[2019-05-15] MEDS ORDERED: BUTORPHANOL 1 MG/ML 1 ML VIAL IV PRN (11:40)
[2019-05-15] MEDS ORDERED: ROPIVACAINE 5MG/ML 20ML VIAL ONE (14:25)
[2019-05-15] MEDS ORDERED: fentaNYL (PF) 50 MCG/ML 5 ML AMP ONE (14:25)
[2019-05-15] MEDS ORDERED: SODIUM CHLORIDE 0.9% 100 ML BAG ONE (14:25)
[2019-05-15] MEDS: OXYTOCIN 20 UNITS/1000 ML NS 1,000 ML IV SCH ×2 (19:35→20:51)
[2019-05-15] MEDS ORDERED: ACETAMINOPHEN TAB 325 MG TAB PO PRN (19:52)
[2019-05-15] MEDS ORDERED: diphenhydrAMINE 50 MG/ML 1 ML VIAL IVP PRN ×2 (19:52)
[2019-05-15] MEDS ORDERED: WITCH HAZEL 1 EACH MED..PAD TOPICAL PRN (19:52)
[2019-05-15] MEDS ORDERED: diphenhydrAMINE ELIXIR 25 MG/10 ML CUP PO PRN (19:52)
[2019-05-15] MEDS ORDERED: diphenhydrAMINE 50 MG CAP PO PRN (19:52)
[2019-05-15] MEDS ORDERED: diphenhydrAMINE 25 MG CAP PO PRN (19:52)
[2019-05-15] MEDS ORDERED: ZOLPIDEM 5 MG TAB PO PRN (19:52)
[2019-05-15] MEDS ORDERED: SIMETHICONE 80 MG CHEWABLE PO PRN (19:52)
[2019-05-15] MEDS ORDERED: BENZOCAINE/MENTHOL SPRAY 1 GM/SPRAY AEROSOL TOPICAL PRN (19:52)
[2019-05-15] MEDS ORDERED: HYDROCORTISONE 2.5% RECTAL CREAM 30 GM TUBE RECTAL PRN (19:52)
[2019-05-15] MEDS ORDERED: LANOLIN CREAM 5 GM TUBE TOPICAL PRN (19:52)
--- NOTE | 2019-05-15 19:52 | P.PROBDLV ---
Vaginal Delivery Note - . Vaginal Delivery Note: This is a 18-year-old white female 2 para 0010 EDC 05/12/2019 at 40-3/7 weeks' gestation. Patient presented for induction for postdates with favorable cervix. Fetus is been active throughout the . She had rare irregular contractions on admission, denying fluid leakage or vaginal bleeding. Blood type B positive, rubella status immune, group B strep cultures negative, please see dictated history and physical for details. Oxytocin was started and titrated per hospital protocol. She progressed well through the first stage of labor with a somewhat protracted course. She was judged to be completely dilated at 1916 hrs. and began the second stage of labor at that time. The perineal body was prepped and draped in usual sterile fashion. With excellent maternal expulsive efforts the head delivered occiput anterior and restituted accordingly. There was a nuchal cord 1 that was reduced. Because of the large head and perceived "turtle sign", additional nursing staff was called to the room. With an exaggerated Jasiel maneuver along with suprapubic pressure, concommitantly, the right or anterior shoulder was delivered from underneath the pubic symphysis. The oropharynx, nasopharynx, and external nares were all bulb suctioned on the perineal body. Patient was officially delivered of a liveborn male infant at 1932 hours. Umbilical cord was doubly clamped and ligated, he was handed to waiting nurses for evaluation where scores of 69 and 9 at one and 5 and 10 minutes respectively were given. The placenta delivered spontaneously, it was inspected and noted to be intact with trivascular cord at 1935 hours. At this time the perineal body was redraped. Inspection of the cervix, vagina, perineum, and periurethral areas revealed a small first-degree perineal laceration on the left fourchette. This was repaired in the usual fashion using 3-0 undyed Vicryl for excellent reapproximation. The uterus is firm and in the midline, symmetric and 18 week size upon completion of delivery. Estimated blood loss 350 mL's. weighs 4640 g or 10 lbs. 4 oz. Upon consultation, patient is declining circumcision for her infant son. They are allowed to begin the bonding experience in the LDR.
[2019-05-15] MEDS: IBUPROFEN 600 MG TAB PO PRN (20:10)
[2019-05-15] MEDS: SENNOSIDES-DOCUSATE SODIUM 1 EACH TAB PO SCH (21:03)
[2019-05-16] MEDS: IBUPROFEN 600 MG TAB PO PRN ×2 (05:28→22:03)
[2019-05-16] MEDS ORDERED: ROPIVACAINE 100 MG, fentaNYL (PF) 200 MCG in SODIUM CHLORIDE 0.9% 76 ML EPIDURAL ONE (06:08)
--- NOTE | 2019-05-16 08:59 | P.DS ---
Providers Date of admission: 05/15/19 05:56 Expected date of discharge: 05/16/19 Attending physician: Roseanna Junior Primary care physician: Stated None - Discharge Diagnosis(es) (1) Post-dates Current Visit: Yes Status: Acute (2) Shoulder dystocia, delivered, current hospitalization Current Visit: Yes Status: Acute (3) Perineal laceration with delivery, first degree Current Visit: Yes Status: Acute (4) Normal spontaneous vaginal delivery Current Visit: Yes Status: Acute (5) macrosomia Current Visit: Yes Status: Acute (6) Nuchal cord Current Visit: Yes Status: Acute Hospital Course: This is a 18-year-old 2 now para 1011 woman who was admitted at 40-3/7 weeks gestation for postdates induction of labor. Please see the admission history and physical for details. Following admission she underwent a Pitocin induction of labor per hospital protocol. She went underwent artificial rupture of membranes. She had a relatively rapid second stage of labor however with delivery of the head there was concern for possible shoulder dystocia. This was rapidly managed with Jasiel maneuver and suprapubic pressure which facilitated delivery of the . Please see delivery summary for details. Apgars were 6 at 1 minute and 9 at 5 minutes and 9 at 10 minutes. Weight was 4640 g or 10 lbs. 4 oz. Patient had a small first-degree laceration that was repaired in the usual fashion. The patient's course was unremarkable. By day #1 she was ambulating and voiding without difficulty. Her lochia was moderate. Her pain was well controlled and her vital signs were stable. Both mother and infant were doing well and therefore discharged home on day #1 with routine instructions for care and follow-up Procedures: Normal spontaneous vaginal delivery Patient Condition at Discharge: Good Plan - Discharge Summary New Discharge Prescriptions: New Ibuprofen [Motrin] 600 mg PO Q6HR PRN tab PRN Reason: Mild Pain Or Fever >= 100.5 Sennosides-Docusate Sodium [Senokot-S] 2 each PO BID@0800,2000 tab No Action Sug-Mjby-Ppzaj Acid [-U Capsule (formulary)] 1 cap PO DAILY Discharge Medication List Ytm-Isyv-Bfakr Acid [-U Capsule (formulary)] 1 cap PO DAILY 04/03/18 [History] Ibuprofen [Motrin] 600 mg PO Q6HR PRN tab 05/16/19 [Rx] Sennosides-Docusate Sodium [Senokot-S] 2 each PO BID@0800,1999 tab 05/16/19 [Rx] Follow up Appointment(s)/Referral(s): Roseanna Junior MD [STAFF PHYSICIAN] - 6 Weeks Activity/Diet/Wound Care/Special Instructions: Follow-up in the office in 6 weeks . Call with any concerning signs or symptoms including heavy vaginal bleeding, severe abdominal pain, fever greater than 101, swelling or redness of the lower extremities, foul vaginal discharge, or signs of depression. Nothing in the vagina for 6 weeks after delivery, specifically no intercourse. Discharge Disposition: HOME SELF-CARE
[2019-05-16] MEDS: SENNOSIDES-DOCUSATE SODIUM 1 EACH TAB PO SCH (21:44)
[2019-05-17] MEDS: IBUPROFEN 600 MG TAB PO PRN (08:05)
[2019-05-17 09:05] VITALS: RESP 16
[2019-05-17] MEDS: SENNOSIDES-DOCUSATE SODIUM 1 EACH TAB PO SCH (14:36)
[2019-05-17 15:43] VITALS: BP 122/56; PULSE 84; TEMP 97.8
== END 2019-05-17 17:42 | disposition home or self-care (01) | DRG 807 ==
LOC: 4FBP 05-15 05:56
PROVIDERS: ADMIT Obstetrics & Gynecology; ATTEND Obstetrics & Gynecology
PROC: 10E0XZZ Delivery of Products of Conception, External Approach (ICD-10-PCS; principal; 2019-05-15)
PROC: 0HQ9XZZ Repair Perineum Skin, External Approach (ICD-10-PCS; 2019-05-15)
PROC: 10907ZC Drainage of Amniotic Fluid, Therapeutic from Products of Conception, Via Natural or Artificial Opening (ICD-10-PCS; 2019-05-15)
PROC: 3E033VJ Introduction of Other Hormone into Peripheral Vein, Percutaneous Approach (ICD-10-PCS; 2019-05-15)
PROC: 00HU33Z Insertion of Infusion Device into Spinal Canal, Percutaneous Approach (ICD-10-PCS; 2019-05-15)
PROC: 3E0R3BZ Introduction of Anesthetic Agent into Spinal Canal, Percutaneous Approach (ICD-10-PCS; 2019-05-15)
DX: O48.0 Post-term pregnancy (principal); Z37.0 Single live birth; O99.344 Other mental disorders complicating childbirth; O36.63X0 Maternal care for excessive fetal growth, third trimester, not applicable or unspecified; O69.81X0 Labor and delivery complicated by cord around neck, without compression, not applicable or unspecified; O70.0 First degree perineal laceration during delivery; F32.9 Major depressive disorder, single episode, unspecified; F41.9 Anxiety disorder, unspecified; Z3A.40 40 weeks gestation of pregnancy; Z87.891 Personal history of nicotine dependence; Z82.49 Family history of ischemic heart disease and other diseases of the circulatory system; Z83.3 Family history of diabetes mellitus; Z84.1 Family history of disorders of kidney and ureter
CPT/HCPCS: 85025; 86850; 86900; 86901

== ENCOUNTER 2020-05-25 18:40 | Emergency (ER) | payer BC ==
[2020-05-25 19:11] VITALS: PULSE 91
[2020-05-25] MEDS ORDERED: SODIUM CHLORIDE 0.9% 1,000 ML IV ONE (19:49)
[2020-05-25 20:15] LABS: Basophils # (A) 0.1 k/uL (0-0.2); Basophils % (A) 1 %; Eosinophils # (A) 0.1 k/uL (0-0.7); Eosinophils % (A) 1 %; HCT 45.5 % (34.0-46.0); HGB 14.9 gm/dL (11.4-16.0); Lymphocytes # (A) 1.8 k/uL (1.0-4.8); Lymphocytes % (A) 18 %; MCH 29.7 pg (25.0-35.0); MCHC 32.7 g/dL (31.0-37.0); MCV 91.1 fL (80.0-100.0); Mean Platelet Volume 7.7; Monocytes # (A) 0.4 k/uL (0-1.0); Monocytes % (A) 4 %; Neutrophils # (A) 7.4 k/uL (1.3-7.7); Neutrophils % (A) 75 %; Platelet Count 247 k/uL (150-450); RDW 12.5 % (11.5-15.5); WBC 9.9 k/uL (3.8-10.6)
[2020-05-25 20:25] LABS: ALT 11 U/L (4-34); AST 22 U/L (14-36); African American GFR (CKD) >90 (>60 ml/min/1.73 sqM); Albumin 4.7 g/dL (3.5-5.0); Alkaline Phosphatase 81 U/L (38-126); Anion Gap 9 mmol/L; Blood Urea Nitrogen 10 mg/dL (7-17); Calcium 9.6 mg/dL (8.4-10.2); Carbon Dioxide 24 mmol/L (22-30); Chloride 106 mmol/L (98-107); Glucose 106 mg/dL (74-99); Non-African American GFR(CKD) >90 (>60 ml/min/1.73 sqM); Potassium 3.9 mmol/L (3.5-5.1); Sodium 139 mmol/L (137-145); Total Bilirubin 0.4 mg/dL (0.2-1.3); Total Protein 7.3 g/dL (6.3-8.2)
[2020-05-25 20:36] LABS: INR 0.9 (<1.2); Partial Thromboplastin Time 24.1 sec (22.0-30.0); Prothrombin Time 9.7 sec (9.0-12.0)
[2020-05-25 20:41] LABS: HCG,Quantitative Serum 5594.3 mIU/mL
--- NOTE | 2020-05-25 21:04 | ED ---
Female Urogenital HPI - General Chief complaint: Vaginal Bleeding Stated complaint: 12wks vag bleed Time Seen by Provider: 05/25/20 19:24 Source: patient Mode of arrival: ambulatory Limitations: no limitations - History of Present Illness Initial comments: 19-year-old female patient presents to the emergency department today for evaluation of spotting. Patient states that since this morning she has been having light pink to red vaginal bleeding when wiping after urinating. She has been wearing a pain But there has been no drainage to the liner. Patient states she is having some mild pressure to her low back but denies any abdominal pain or cramping. She denies any hematuria, dysuria, urinary frequency, urinary urgency. Patient states she is approximately 12 weeks . She is G3, P1, with one spontaneous at around 6-7 weeks gestation. Patient is seeing Dr. Junior for care. She did have an ultrasound at 9 weeks gestation. Patient denies any recent rash, fever, chills, cough, shortness of breath, chest pain, nausea, vomiting, diarrhea, constipation, numbness, tingling, dizziness, weakness, headache, visual changes, or any other complaints. - Related Data Home Medications Medication Instructions Recorded Confirmed [id number] Acid 1 cap PO DAILY 04/03/18 05/15/19 [-U Capsule (formulary)] Previous Rx's Medication Instructions Recorded Ibuprofen [Motrin] 600 mg PO Q6HR PRN tab 05/16/19 Sennosides-Docusate Sodium 2 each PO BID@0800,2000 tab 05/16/19 [Senokot-S] Allergies Allergy/AdvReac Type Severity Reaction Status Date / Time No Known Allergies Allergy Verified 05/25/20 19:11 Review of Systems ROS Statement: Those systems with pertinent positive or pertinent negative responses have been documented in the HPI. ROS Other: All systems not noted in ROS Statement are negative. Past Medical History Past Medical History: No Reported History History of Any Multi-Drug Resistant Organisms: None Reported Past Surgical History: Tonsillectomy Past Psychological History: Anxiety, Depression Smoking Status: Never smoker Past Alcohol Use History: None Reported Past Drug Use History: None Reported - Past Family History Father Family Medical History: No Reported History General Exam Limitations: no limitations General appearance: alert, in no apparent distress, other (This is a well- developed, well-nourished adult female patient in no acute distress. Vital signs upon presentation are temperature 99.2F, pulse 91, respirations 18, blood pressure 110/69, pulse ox 99% on room air.) Eye exam: Present: normal appearance, PERRL, EOMI. Absent: scleral icterus, conjunctival injection, periorbital swelling ENT exam: Present: normal exam, normal oropharynx, mucous membranes moist Respiratory exam: Present: normal lung sounds bilaterally. Absent: respiratory distress, wheezes, rales, rhonchi, stridor Cardiovascular Exam: Present: regular rate, normal rhythm, normal heart sounds. Absent: systolic murmur, diastolic murmur, rubs, gallop, clicks GI/Abdominal exam: Present: soft, normal bowel sounds. Absent: distended, tenderness, guarding, rebound, rigid Neurological exam: Present: alert, oriented X3, CN II-XII intact Psychiatric exam: Present: normal affect, normal mood Skin exam: Present: warm, dry, intact, normal color. Absent: rash Course Vital Signs 05/25/20 05/25/20 19:08 21:50 Temperature 99.2 F 98.9 F Pulse Rate 91 Respiratory 18 16 Rate Blood Pressure 110/69 129/50 O2 Sat by Pulse 99 Oximetry Medical Decision Making - Medical Decision Making 19-year-old female patient who is approximately 12 weeks presents to the emergency department today for evaluation of spotting and low back pressure. Physical examination reveals soft nontender abdomen. Labs reviewed. Does reveal hCG level of 5500. Patient's ABO Rh is B+. Urinalysis shows no signs of infection. Ultrasound was obtained and showed concern for impending , no heart tones, irregular yolk sac noted. I did discuss findings and results with the patient. She will be discharged to follow-up with her TENSION MACHINE OPERATOR, she has established care with Dr. Junior. She is instructed to call in the morning for appointment and to inform her TENSION MACHINE OPERATOR of her results. Return parameters were discussed in detail. She verbalizes understanding and agrees with this plan. - Lab Data Result diagrams: 05/25/20 20:02 05/25/20 20:02 Lab Results 05/25/20 05/25/20 05/25/20 Range/Units 20:02 20:02 20:02 WBC 9.9 (3.8-10.6) k/uL RBC 5.00 (3.80-5.40) m/uL Hgb 14.9 (11.4-16.0) gm/dL Hct 45.5 (34.0-46.0) % MCV 91.1 (80.0-100.0) fL MCH 29.7 (25.0-35.0) pg MCHC 32.7 (31.0-37.0) g/dL RDW 12.5 (11.5-15.5) % Plt Count 247 (150-450) k/uL Neutrophils % 75 % Lymphocytes % 18 % Monocytes % 4 % Eosinophils % 1 % Basophils % 1 % Neutrophils # 7.4 (1.3-7.7) k/uL Lymphocytes # 1.8 (1.0-4.8) k/uL Monocytes # 0.4 (0-1.0) k/uL Eosinophils # 0.1 (0-0.7) k/uL Basophils # 0.1 (0-0.2) k/uL PT 9.7 (9.0-12.0) sec INR 0.9 (<1.2) APTT 24.1 (22.0-30.0) sec Sodium 139 (137-145) mmol/L Potassium 3.9 (3.5-5.1) mmol/L Chloride 106 (98-107) mmol/L Carbon Dioxide 24 (22-30) mmol/L Anion Gap 9 mmol/L BUN 10 (7-17) mg/dL Creatinine 0.43 L (0.52-1.04) mg/dL Est GFR (CKD-EPI)AfAm >90 (>60 ml/min/1.73 sqM) Est GFR (CKD-EPI)NonAf >90 (>60 ml/min/1.73 sqM) Glucose 106 H (74-99) mg/dL Calcium 9.6 (8.4-10.2) mg/dL Total Bilirubin 0.4 (0.2-1.3) mg/dL AST 22 (14-36) U/L ALT 11 (4-34) U/L Alkaline Phosphatase 81 (38-126) U/L Total Protein 7.3 (6.3-8.2) g/dL Albumin 4.7 (3.5-5.0) g/dL HCG, Quant 5594.3 mIU/mL Blood Type Blood Type Recheck Bld Type Recheck Status 05/25/20 Range/Units 20:52 WBC (3.8-10.6) k/uL RBC (3.80-5.40) m/uL Hgb (11.4-16.0) gm/dL Hct (34.0-46.0) % MCV (80.0-100.0) fL MCH (25.0-35.0) pg MCHC (31.0-37.0) g/dL RDW (11.5-15.5) % Plt Count (150-450) k/uL Neutrophils % % Lymphocytes % % Monocytes % % Eosinophils % % Basophils % % Neutrophils # (1.3-7.7) k/uL Lymphocytes # (1.0-4.8) k/uL Monocytes # (0-1.0) k/uL Eosinophils # (0-0.7) k/uL Basophils # (0-0.2) k/uL PT (9.0-12.0) sec INR (<1.2) APTT (22.0-30.0) sec Sodium (137-145) mmol/L Potassium (3.5-5.1) mmol/L Chloride (98-107) mmol/L Carbon Dioxide (22-30) mmol/L Anion Gap mmol/L BUN (7-17) mg/dL Creatinine (0.52-1.04) mg/dL Est GFR (CKD-EPI)AfAm (>60 ml/min/1.73 sqM) Est GFR (CKD-EPI)NonAf (>60 ml/min/1.73 sqM) Glucose (74-99) mg/dL Calcium (8.4-10.2) mg/dL Total Bilirubin (0.2-1.3) mg/dL AST (14-36) U/L ALT (4-34) U/L Alkaline Phosphatase (38-126) U/L Total Protein (6.3-8.2) g/dL Albumin (3.5-5.0) g/dL HCG, Quant mIU/mL Blood Type B Positive Blood Type Recheck B Pos Bld Type Recheck Status No - Radiology Data Radiology results: report reviewed Ultrasound was obtained. Report was reviewed in its entirety. Impression by Dr. De Los Santos shows suspect impending with inability to obtain heart tones. Short term beta hCG and ultrasound follow-up should be considered Disposition Clinical Impression: Spontaneous miscarriage Disposition: HOME SELF-CARE Condition: Good Instructions (If sedation given, give patient instructions): Miscarriage (ED) Additional Instructions: Rest. Increase fluids. Use heating pad for comfort. Take tylenol or motrin for pain control. Call your OBGYN in the morning for further evaluation and information. Return to the emergency room immediately for any new, worsening, or concerning symptoms. Is patient prescribed a controlled substance at d/c from ED?: No Referrals: None,Stated [Primary Care Provider] - 1-2 days Time of Disposition: 21:34
--- NOTE | 2020-05-25 21:10 | US ---
EXAMINATION TYPE: Transabdominal DATE OF EXAM: 05/25/2020 8:40 PM COMPARISON: None.. CLINICAL HISTORY: Vag bleed; 12 weeks pg. Vaginal bleeding x 1 day. Hx ovarian cyst. . Positive ECG test. EXAM PERFORMED: Transabdominal (TA) EXAM MEASUREMENTS: GESTATIONAL AGE / DATING Physician Established: (11 weeks/4 days) EDC: 12/10/2020 Dates by LMP: Unknown Dates by First Scan: This is first scan Dates by Current Scan for: (9 weeks/2 days) EDC: 12/26/2020. CRL seen, unable to detect heart tones at this time. MATERNAL ANATOMY Uterus: 12.3 x 9.6 x 5.0 cm. Right Ovary: 2.9 x 2.2 x 1.5 cm. Left Ovary: 3.0 x 2.1 x 1.5 cm. Post CDS / Adnexa: appear wnl Presence of free fluid: no Presence of corpus luteal cyst: no Presence of subchorionic bleed: Two mixed/hypoechoic areas seen adjacent to the gestational sac. Larg er area is inferior to the gestational sac measurin.9 x 2.5 x 2.1 cm. GESTATION / SURVEY CRL: 2.56 cm. (9 weeks/2 days) Yolk Sac (normal less than 6mm): 7.4 mm. Measures abnormal. Rhythm: Unable to detect heart tones at this time. IUP: CRL seen, unable to detect heart tones. Date of LMP: Unknown Beta HcG (if available): 5,594.3 Documentation of intrauterine gestation with gestational sac and pole. There is abnormal yolk s ac measuring 7 mm. Small to moderate size two heterogeneous implantation bleed or subchorionic hemorr john adjacent to gestational sac. heart tones cannot be detected despite several attempts. No f ree fluid in pelvic cul-de-sac. Both ovaries seen without suspicious extraovarian adnexal mass. IMPRESSION: Suspect impending with inability to obtained heart tone. Short-term beta-h CG and ultrasound follow-up should be considered.
[2020-05-25 21:58] VITALS: BP 129/50; RESP 16; TEMP 98.9
== END 2020-05-25 22:00 | disposition home or self-care (01) ==
LOC: EC 18:40
DX: O03.9 Complete or unspecified spontaneous abortion without complication (principal); Z3A.12 12 weeks gestation of pregnancy; Z79.899 Other long term (current) drug therapy
CPT/HCPCS: 36415; 76801; 80053; 84702; 85025; 85610; 85730; 86900; 86901; 96360; 99284